=== PATIENT | female | born 1995 | race Two or more races ===

== ENCOUNTER 2018-03-10 04:04 | Emergency (ER) | payer SELFPAY ==
[~2018-03-10] VITALS: Ht 160 cm; Wt 61.2 kg
--- NOTE | 2018-03-10 04:45 | NUR ---
Pt BIBSELF FROM HOME C/O MIDLOWER ABD PAIN RADIATING TO LLQ & RLQ OF ABD FOR THE PAST 2 DAYS. +DYSURIA. -HEMATURIA. -N/V/D. Pt IS AFEBRILE. Pt IS A/OX3, VERBAL, ABLE TO MAKE NEEDS KNOWN, & ABLE TO COMMUNICATE WELL. NO S/S OF ACUTE DISTRESS OR SOB NOTED. Pt ALREADY SEEN BY MD AT BEDSIDE. WILL CONTINUE TO MONITOR Pt.
[2018-03-10 04:54] LABS: APPEARANCE,URINE CLEAR (CLEAR); BILIRUBIN,URINE NEGATIVE (NEGATIVE); BLOOD, URINE NEGATIVE Ery/uL (NEGATIVE); COLOR,URINE YELLOW (YELLOW); KETONES,URINE NEGATIVE (NEGATIVE); LEUKOCYTE ESTERASE ,URINE NEGATIVE (NEGATIVE); NITRITE, URINE NEGATIVE (NEGATIVE); PROTEIN,URINE NEGATIVE (NEGATIVE); UGLUCOSE NEGATIVE (NEGATIVE); UROBILINOGEN,URINE 0.2 EU/dL (0.2)
--- NOTE | 2018-03-10 06:41 | NUR ---
Patient discharged to home in stable condition. Written and verbal after care instructions given. Patient verbalizes understanding of instruction. Patient left facility on foot with steady gait. no s/s of acute distress or sob noted. vs stable.
[2018-03-10 06:42] VITALS: BP 118/78
== END 2018-03-10 06:43 | disposition home or self-care (01) ==
LOC: ER 04:08
DX: R10.2 Pelvic and perineal pain (principal)
CPT/HCPCS: 76856-TC; 81000-TC; 84703-TC; A4606; Z7610

== ENCOUNTER 2018-03-30 18:00 | Emergency (ER) | payer SELFPAY ==
[~2018-03-30] VITALS: Ht 160 cm; Wt 67.6 kg
--- NOTE | 2018-03-30 18:13 | NUR ---
PT BIBSELF C/O LOWER ABD PAIN; WORSE TODAY, DENIES N/V/D, PT AAOX4, RESPIRATIONS EVEN AND UNLABORED, NO SOB, NAD NOTED, PENDING ER PROVIDER EVAL
--- NOTE | 2018-03-30 18:25 | NUR ---
CHERYLE COLLECTED AND SENT TO LAB
[2018-03-30 18:33] LABS: APPEARANCE,URINE CLEAR (CLEAR); BILIRUBIN,URINE NEGATIVE (NEGATIVE); BLOOD, URINE NEGATIVE Ery/uL (NEGATIVE); COLOR,URINE YELLOW (YELLOW); KETONES,URINE NEGATIVE (NEGATIVE); LEUKOCYTE ESTERASE ,URINE NEGATIVE (NEGATIVE); NITRITE, URINE NEGATIVE (NEGATIVE); PROTEIN,URINE NEGATIVE (NEGATIVE); UGLUCOSE NEGATIVE (NEGATIVE); UROBILINOGEN,URINE 0.2 EU/dL (0.2)
[2018-03-30] MEDS ORDERED: KETOROLAC TROMETHAMINE INJ 30 MG/ML VIAL ONE (19:18)
[2018-03-30 19:27] LABS: ALBUMIN 4.4 g/dL (3.4-5.0); BILIRUBIN,DIRECT 0.1 mg/dL (0.0-0.2); BILIRUBIN,TOTAL 0.2 mg/dL (0.2-1.0); CALCIUM, SERUM 9.7 mg/dL (8.5-10.1); CREATININE 0.9 mg/dL (0.6-1.3); POTASSIUM 3.8 mmol/L (3.5-5.1); TOTAL PROTEIN, SERUM 8.5 g/dL (6.4-8.2)
[2018-03-30] MEDS ORDERED: KETOROLAC TROMETHAMINE INJ 30 MG/ML VIAL IM ONE (19:30)
[2018-03-30 20:05] LABS: BASOPHILS # (AUTO) 0.1 /CMM (0.0-0.2); BASOPHILS % (AUTO) 0.8 % (0.0-2.0); EOSINOPHILS % (AUTO) 3.9 % (0.0-6.0); HEMATOCRIT 45 % (33-45); HEMOGLOBIN 15.2 g/dL (11.5-14.8); LYMPHOCYTES # (AUTO) 2.9 /CMM (0.8-4.8); LYMPHOCYTES % (AUTO) 38.3 % (20.0-44.0); MEAN CORPUSCULAR HGB CONC 34 g/dl (31.0-36.0); MEAN CORPUSCULAR VOLUME 97 fL (82-100); MONOCYTES # (AUTO) 0.5 /CMM (0.1-1.30); MONOCYTES % (AUTO) 6.3 % (2.0-12.0); NEUTROPHILS # (AUTO) 3.8 /CMM (1.8-8.9); NEUTROPHILS % (AUTO) 50.7 % (43.0-81.0); PLATELET COUNT (AUTO) 293 /CMM (150-450); RED BLOOD CELL COUNT(AUTO) 4.63 MIL/uL (4.0-5.2); WHITE BLOOD COUNT (AUTO) 7.5 K/uL (4.3-11.0)
[2018-03-30 20:09] VITALS: BP 100/50
== END 2018-03-30 20:39 | disposition home or self-care (01) ==
LOC: ER 18:00
DX: R10.2 Pelvic and perineal pain (principal); R10.30 Lower abdominal pain, unspecified
CPT/HCPCS: 36415; 80048; 80076; 81001; 83690; 84703; 85025; 96372; 99283; A4606; J1885; Z7610; 81000-TC

== ENCOUNTER 2019-06-25 20:04 | Emergency (ER) | payer SELFPAY ==
[~2019-06-25] VITALS: Ht 160 cm; Wt 61.2 kg
[2019-06-25 20:04] VITALS: BP 124/95
--- NOTE | 2019-06-25 20:04 | NUR ---
PT BIB SELF C/O SOB X3 DAYS, COUGH X6 DAYS. PT IS AAOX4, NOT IN RESPIRATORY DISTRESS, V/S STABLE, O2 SAT AT 99% ON RA, KEPT RESTED AND COMFORTABLE, WILL CONTINUE TO MONITOR, AWAITING ER MD FOR EVAL.
--- NOTE | 2019-06-25 21:05 | NUR ---
PT LEFT WITHOUT BEING SEEN BY MD. MD AND CHARGE NURSE AWARE.
== END 2019-06-25 21:10 | disposition home or self-care (01) ==
LOC: ER 20:06
DX: R06.02 Shortness of breath (principal); Z53.21 Procedure and treatment not carried out due to patient leaving prior to being seen by health care provider

== ENCOUNTER 2019-07-01 05:21 | Emergency (ER) | payer MEDICAID ==
[~2019-07-01] VITALS: Ht 160 cm; Wt 65.8 kg
[2019-07-01 05:37] VITALS: BP 127/86
== END 2019-07-01 06:52 | disposition home or self-care (01) ==
LOC: ER 05:23
DX: R06.02 Shortness of breath (principal); R05 Cough; J02.9 Acute pharyngitis, unspecified; R09.81 Nasal congestion
CPT/HCPCS: 71045-TC